=== PATIENT | male | born 1995 | race Two or more races ===

== ENCOUNTER 2018-05-22 11:38 | Emergency (ER) | payer OTHER ==
[2018-05-22] MEDS ORDERED: TDAP ADULT 0.5 ML INJ (BOOSTRIX) IM ONE (12:11)
--- NOTE | 2018-05-22 12:23 | EDPHY ---
H & P Time Seen by Provider: 05/22/18 11:46 HPI/ROS: Chief complaint: Dog bite to the posterior aspect of the right leg HPI: Previously healthy 22-year-old male doing a install at the house while working for comp [employer]. 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 There in the backyard and the dog seemed to be particularly disturbed and upset about them being there. While he did not attack he was being aggressive stance. While they completed their work and they are on their way to the gait, the dog pursued him and nipped him on the posterior aspect of the right thigh just above the knee itself. This all happened just prior to admission. Injury of the right thigh, from dog bite This happened at work , occurring just [employer] Reports there is no numbness or loss of sensation. Contamination: The pants themselves have been inspected and did not tear, however nonetheless it was a dog bite. FB possibility no tear to the clothing Last Td or TDAP: more than 5 years Work: Insulation of came on at works for [employer] The gas fitter apprentice has been notified. Evidently the car seat upholsterer was not there. There was a resident of the household who was on the phone who is telling the dog to stand down but the dog not obey. ROS Neuro: No numbness or tingling or loss of sensation Smoking Status: Current every day smoker Physical Exam: Gen: Well-developed. Well-nourished. No odor of alcohol. Nontoxic. Afebrile. Extremity: There is a 3 cm, superficial abrasions/laceration that is split thickness to the [posterior aspect of the right thigh just above the popliteal fossa. Function: Without signs of tendon dysfunction NV Status: Intact CMS: Intact Constitutional: Initial Vital Signs Temperature (C) 36.9 C 05/22/18 11:46 Heart Rate 84 05/22/18 11:46 Respiratory Rate 18 05/22/18 11:46 Blood Pressure 133/91 H 05/22/18 11:46 O2 Sat (%) 96 05/22/18 11:46 O2 Delivery Mode Room Air Allergies/Adverse Reactions: No Known Allergies Allergy (Unverified 05/22/18 11:46) Home Medications: Medication Instructions Recorded Seroquel 05/22/18 Medical Decision Making ED Course/Re-evaluation: This wound should not be sutured due to the contamination from the dog bite. Fortunately the pants were intact and thus foreign body is essentially nail. Using sterile technique the local wound was infiltrated with 1% xylocaine with epi prior to the lavage performed by the tech. It is been more than 5 years since his last tetanus shot thus he will get 1. He needs a wound check in 2 days for infection thus he will return here to the ER or see his family physician As to the rabies vaccine, this is a low risk situation in that the dog was protecting its domain. The dog animal control however we will be checking a verify the immunization status of the dog. The patient is to notify us if the dog has never been vaccinated or is behind on his vaccinations Differential Diagnosis: Diagnostic considerations include, but are not limited to, the following: Laceration, retained FB, dog bite puncture . Departure - Departure Disposition: Home, Routine, Self-Care Clinical Impression: Dog bite Qualifiers: Encounter type: initial encounter Qualified Code(s): W54.0XXA - Bitten by dog, initial encounter Dog bite of right lower leg Qualifiers: Encounter type: initial encounter Qualified Code(s): S81.851A - Open bite, right lower leg, initial encounter Condition: Good Instructions: Animal Bite (ED) Additional Instructions: Clean the wound twice a day with mild soap Keep the wound covered until it scabbed over Return for wound check in 2 days time, at your convenience, or see your family physician If the police department notes that the dog has not been vaccinated for rabies, then you need to return immediately Watch for signs of infection daily: Redness extending beyond the wound, red streaks, or drainage Tylenol or ibuprofen should be sufficient for her pain, if he needs something stronger than it is imperative that you return for further re-evaluation Referrals: NONE *PRIMARY CARE P,. [Primary Care Provider] - As per Instructions
[2018-05-22 13:13] VITALS: BP 132/74
== END 2018-05-22 13:09 | disposition home or self-care (01) ==
LOC: CED 11:38
DX: S81.851A Open bite, right lower leg, initial encounter (principal); W54.0XXA Bitten by dog, initial encounter; Y93.E9 Activity, other interior property and clothing maintenance; Y92.019 Unspecified place in single-family (private) house as the place of occurrence of the external cause; Y99.0 Civilian activity done for income or pay